=== PATIENT | male | born 1990 | race Caucasian/White ===

== ENCOUNTER 2016-12-31 14:50 | Emergency (ER) | payer MEDICARE, MEDICAID ==
[~2016-12-31 14:50] MED LIST: Sodium Chloride 0.9% 1,000 ML BAG ONE
[2016-12-31] MEDS ORDERED: Acetaminophen 500 MG TAB ONE (15:15)
[2016-12-31] MEDS ORDERED: Ibuprofen 600 MG TAB ONE (15:15)
[2016-12-31] MEDS ORDERED: Dexamethasone 10 MG/ML VIAL ONE (15:40)
[2016-12-31] MEDS ORDERED: Azithromycin 500 MG VIAL ONE (15:40)
[2016-12-31] MEDS ORDERED: Ondansetron HCl/PF 4 MG/2 ML Vial ONE (16:27)
--- NOTE | 2016-12-31 18:51 | ERRECORD ---
[facility] EMERGENCY RECORD HPI SORE THROAT (18:42 BPIC) CHIEF COMPLAINT: Patient presents for evaluation of sore throat. HISTORIAN: History provided by patient. LOCATION: No localizing symptoms. QUALITY: Pain is sharp in nature. SEVERITY: Maximum severity of symptoms moderate, Currently symptoms are moderate. TIME COURSE: Gradual onset of symptoms, Symptoms are worsening. ASSOCIATED WITH: Associated with fever, No associated drooling, No associated dysphagia, No associated headache, No associated inability to take oral fluids. EXACERBATED BY: Patient's condition exacerbated by food. RELIEVED BY: Patient's condition relieved by cold fluids. ROS (18:42 BPIC) CONSTITUTIONAL: Negative constitutional review of systems. EYES: Negative eye review of systems. ENT: see hpi. CARDIOVASCULAR: Negative cardiovascular review of systems. RESPIRATORY: Negative respiratory review of systems. GI: Negative gastrointestinal review of systems. MUSCULOSKELETAL: Negative musculoskeletal review of systems. SKIN: Negative skin review of systems. PSYCHIATRIC: Negative psychiatric review of systems. NOTES: All other ROS is negative except as listed in HPI. PAST MEDICAL HISTORY MEDICAL HISTORY: Flu vaccine not up to date, Pneumococcal vaccine not up to date, No past medical history, Flu vaccine not up to date, Tetanus immunization up to date, Flu vaccine up to date, Tetanus not up to date, Pneumococcal vaccine not up to date. VERIFIED 12/31/16. (15:10 EROG) MALE SURGICAL HISTORY: Surgical history of splenectomy. VERIFIED 09-12-16. VERIFIED 12/31/16. (15:10 EROG) PSYCHIATRIC HISTORY: Psychiatric history includes, anxiety, depression, schizophrenia, ADHD, Psychiatric history includes previous inpatient psychiatric admissions, Date of last admission: 2007, Psychiatric history includes history of suicide attempts, by OVERDOSE, Date of attempt: 5 YRS AGO (PT WAS 17 YRS OLD). VERIFIED 12/31/16. (15:10 EROG) SOCIAL HISTORY: Patient drinks socially, every week, Patient is a former drug user, abused marijuana, Patient currently uses tobacco, smokes cigarettes, daily, Patient has smoked for 10 years, Patient smokes 1/2 packs per day, Patient currently uses tobacco, smokes cigarettes, daily, Patient has smoked for 10 years, Patient smokes 1 pack per day, Patient currently uses tobacco, Patient smokes cigarettes, Patient drinks socially. Patient drinks socially, Patient currently uses tobacco, Patient smokes cigarettes, daily, Patient smokes 1 pack per &a-1R&a+25V*p+0X*[id number]*c202B*c15G*c2P*p-0X&a-25V&a+1R Name: Issac Nix : 1990 M26 MedRec: [id number] AcctNum: [id number] Prepared: ThuDec 31, 2016 18:52 by Interface Page 1 of 3 pMD [facility] EMERGENCY RECORD day, , Patient currently uses drugs, abuses methamphetamines,.RECREATIONAL MARIJUANA,. (15:10 EROG) FAMILY HISTORY: No significant family history. (15:10 EROG) NOTES: I have reviewed and agree with the PMH/PSxH/FamHx/SocHx obtained by the nurse. (18:42 BPIC) KNOWN ALLERGIES Penicillins CURRENT MEDICATIONS (15:06 EROG) None VITAL SIGNS VITAL SIGNS: BP: 98/63, Pulse: 119, Resp: 22, Temp: 104.3 (Tympanic), Pain: 10 (Constant), O2 sat: 98 on Room Air, Time: 12/31/2016 15:03. (15:03 EROG) BP: 99/48, Pulse: 106, Resp: 22, Temp: 102.7 (Tympanic), O2 sat: 95 on Room Air, Time: 12/31/2016 17:01. (17:01 EROG) BP: 100/42, Pulse: 100, Resp: 20, Temp: 100.7 (Tympanic), Pain: 3, O2 sat: 96 on Room Air, Time: 12/31/2016 17:30. (17:30 EROG) BP: 122/61, Pulse: 101, Resp: 18, Pain: 2, O2 sat: 97 on Room Air, Time: 12/31/2016 18:00. (18:00 EROG) PHYSICAL EXAM (18:42 BPIC) CONSTITUTIONAL: Vital signs reviewed, Patient afebrile, Pulse normal, Blood pressure normal, Respiratory rate normal, Patient appears non toxic, Patient appears pain free, Patient alert and oriented to person, place and time. HEAD: Head exam included findings of head atraumatic, normocephalic. EYES: Eye exam included findings of eyelids normal to inspection, Pupils equally round and reactive to light, Extraocular muscles intact. ENT: Pharynx exam normal, Uvula exam normal, Tonsils, enlarged bilaterally, with exudates bilaterally. NECK: Neck exam included findings of normal range of motion, Trachea midline. RESPIRATORY CHEST: Respiratory exam included findings of no respiratory distress, Breath sounds clear. CARDIOVASCULAR: Cardiovascular exam included findings of heart rate regular rate and rhythm, Heart sounds normal. NEURO: Neuro exam findings include patient oriented to person, place and time, Speech normal. PSYCHIATRIC: Psychiatric exam included findings of patient oriented to person place and time, Normal affect. MEDICATION ADMINISTRATION SUMMARY Drug Name: Zofran intravenous, Dose Ordered: 8 mg, Route: IV Push, &a-1R&a+25V*p+0X*[id number]*c202B*c15G*c2P*p-0X&a-25V&a+1R Name: Issac Nix : 1990 M26 MedRec: [id number] AcctNum: [id number] Prepared: ThuDec 31, 2016 18:52 by Interface Page 2 of 3 pMD [facility] EMERGENCY RECORD Status: Given, Time: 16:30 12/31/2016, Drug Name: *sodium chloride 0.9 % intravenous, Dose Ordered: 1 L, Route: IV Fluid Infusion, Status: Given, Time: 16:15 12/31/2016, Drug Name: azithromycin intravenous, Dose Ordered: 500 mg, Route: IV Piggy Back, Status: Given, Time: 16:10 12/31/2016, Drug Name: Decadron injection, Dose Ordered: 10 mg, Route: IV Push, Status: Given, Time: 16:09 12/31/2016, Drug Name: *ibuprofen, Dose Ordered: 600 mg, Route: Oral, Status: Given, Time: 15:18 12/31/2016, Drug Name: *acetaminophen oral, Dose Ordered: 1000 mg, Route: Oral, Status: Given, Time: 15:18 12/31/2016, *Additional information available in notes, Detailed record available in Medication Service section. DOCTOR NOTES (18:42 BPIC) NOTES: Patient with sorethroat and fever by history. Non-toxic appearing. DDX considered includes sagar-tonsillar abscess, retro-pharyngeal abscess, dental infection, ebony's, strep throat, mono, thyroiditis. Exam is re-assuring. Will d/c to outpatient follow up with symptomatic treatment. TEXT: pt was tachycardic and febrile, after ivf and iv abx, along with antipyretics, pt felt much better. PROBLEM LIST No recorded problems DIAGNOSIS (16:33 BPIC) FINAL: PRIMARY: Strep pharyngitis. PRESCRIPTION (16:34 BPIC) azithromycin oral: TABLET : 250 mg : ORAL : Quantity: 250 Unit: mg Route: ORAL Schedule: once a day Dispense: 6 May substitute. Refills: No Refills . NOTES: 500 mg on day 1 then 250 mg on days 2-5 No Refills. DISPOSITION PATIENT: Disposition Type: Discharge, Disposition: *Discharge Home, Condition: Good. (16:33 BPIC) Patient left the department. (18:33 EROG) [place]: BPIC=MD Chandu, Eric EROG=TARA Thornton, Evert &a-1R&a+25V*p+0X*[id number]*c202B*c15G*c2P*p-0X&a-25V&a+1R Name: Issac Nix : 1990 M26 MedRec: [id number] AcctNum: [id number] Prepared: ThuDec 31, 2016 18:52 by Interface Page 3 of 3 pMD MTDD
--- NOTE | 2016-12-31 18:55 | PICIS ---
[facility] EMERGENCY RECORD TRIAGE (ThuDec 31, 2016 15:05 EROG) TRIAGE NOTES: FEVER, CONGESTION, BODY ACHES FOR 1 WEEK. (ThuDec 31, 2016 15:05 EROG) PATIENT: NAME: Issac Nix, AGE: 26, GENDER: male, : Thu1990, TIME OF GREET: ThuDec 31, 2016 14:51, PREFERRED LANGUAGE: Swazi, ETHNICITY: Not or , FALL RISK: NO, ECODE BILLING MAP: [facility], SSN: [id number], Zip Code: [address], KG WEIGHT: 61.23 (est.), HEIGHT/LENGTH: 170.18cm, BMI: 21.14, PHONE: , , , PERSON ID: [id number], PCP: NONE. (ThuDec 31, 2016 15:05 EROG) COMPLAINT: HIGH FEVER. (ThuDec 31, 2016 15:05 EROG) ADMISSION: URGENCY: 3 Urgent, ADMISSION SOURCE: Home, TRANSPORT: CAR, BED: TRIAGE. (ThuDec 31, 2016 15:05 EROG) ASSESSMENT: Assessment: FEVER, CONGESTION, GENERALIZED BODY ACHES, Symptoms began 1 week ago. (15:10 EROG) PAIN: Patient complains of pain described as, unbearable, on a scale 0-10 patient rates pain as 10, Pain is constant, No aggravating factors, No relieving factors. (15:10 EROG) IMMUNIZATIONS: Flu vaccine not up to date, Pneumococcal vaccine not up to date. (15:10 EROG) SIRS SCORING: Heart Rate 110-139 (2), Temp range 102.1-105.6 (3), respiratory rate 12-24 (0), Mental Status altered: no (0), Total SIRS Score 5, Yes, Infection or Suspected Infection. (15:10 EROG) PROVIDERS: TRIAGE NURSE: Evert Thornton RN. (ThuDec 31, 2016 15:05 EROG) VITAL SIGNS: BP 98/63, Pulse 119, Resp 22, Temp 104.3, (Tympanic), Pain 10, (Constant), O2 Sat 98, on Room Air, Time 12/31/2016 15:03. (15:03 EROG) PREVIOUS VISIT ALLERGIES: Penicillins. (ThuDec 31, 2016 15:05 EROG) Penicillins. (15:10 EROG) KNOWN ALLERGIES Penicillins CURRENT MEDICATIONS (15:06 EROG) None VITAL SIGNS VITAL SIGNS: BP: 98/63, Pulse: 119, Resp: 22, Temp: 104.3 (Tympanic), Pain: 10 (Constant), O2 sat: 98 on Room Air, Time: 12/31/2016 15:03. (15:03 EROG) BP: 99/48, Pulse: 106, Resp: 22, Temp: 102.7 (Tympanic), O2 sat: 95 on Room Air, Time: 12/31/2016 17:01. (17:01 EROG) BP: 100/42, Pulse: 100, Resp: 20, Temp: 100.7 (Tympanic), Pain: 3, O2 sat: 96 on Room Air, Time: 12/31/2016 17:30. (17:30 EROG) BP: 122/61, Pulse: 101, Resp: 18, Pain: 2, O2 sat: 97 on Room Air, Time: &a-1R&a+25V*p+0X*h3585B*c202B*c15G*c2P*p-0X&a-25V&a+1R Name: Issac Nix : 1990 M26 MedRec: [id number] AcctNum: [id number] Prepared: ThuDec 31, 2016 18:58 by Interface Page 1 of 9 pMD [facility] EMERGENCY RECORD 12/31/2016 18:00. (18:00 EROG) NURSING ASSESSMENT: ENT (15:19 EROG) CONSTITUTIONAL: Patient arrives ambulatory, Gait steady, History obtained from patient, Patient appears, generally ill, Patient cooperative, Patient alert, Oriented to person, place and time, Skin warm, Skin dry, Skin normal in color, Mucous membranes pink, Mucous membranes, dry, Patient, with poor personal hygiene, cLOTHES DIRTY, Patient complains of FEVER, CONGESTION, GENERALIZED BODY ACHES. PAIN: to the throat, DESCRIBES - BODY BEING SHOCKED BY ELECTRICITY, Pain exacerbated by, speaking, swallowing. ENT: Ear assessment findings include ear normal to inspection, Nasal assessment findings include nose normal to inspection, Sinuses normal, Nasal mucosa normal, Congestion, bilaterally, Mouth and throat assessment findings include mouth inspection normal, Uvula normal, Tonsils, swollen +1 on the left, normal on the right, without exudates, Mucous membranes pink, and, dry, Unable to swallow, complains of difficulty swallowing, PAINFUL, Speech normal, Associated with fever, Maximum temperature (degree F) 104.2, tympanically, Associated with headache, FRONTAL. RESPIRATORY/CHEST: Breath sounds clear, Respiratory assessment findings include respiratory effort easy, Respirations regular, Conversing normally, Neck and chest exam findings include trachea midline, Chest expansion equal, Chest movement symmetrical, Associated with cough, non-productive, Associated with fever, tympanic. NOTES: Notes: C/O GENERALIZED BODY PAIN, GREATEST IN HIS BACK. NURSING PROCEDURE: DISCHARGE NOTE (18:20 EROG) DISCHARGE: Patient discharged to home, ambulating without assistance, friend driving, accompanied by friend, Summary of Care printed/ provided, Patient requested and was provided an electronic copy of Discharge Instructions, Transition record given to patient, Discharge instructions given to patient, Simple or moderate discharge teaching performed, Prescriptions given and instructions on side effects given, Name of prescription(s) given: azithromycin, Medication reconciliation form given, Above person(s) verbalized understanding of discharge instructions and follow-up care. BELONGINGS: Belongings remain with patient, Valuables remain with patient. NURSING PROCEDURE: IV PATIENT IDENITIFIER: Patient actively involved in identification process, Patient's identity verified by patient stating name, &a-1R&a+25V*p+0X*d2982X*c202B*c15G*c2P*p-0X&a-25V&a+1R Name: Issac Nix : 1990 M26 MedRec: [id number] AcctNum: [id number] Prepared: ThuDec 31, 2016 18:58 by Interface Page 2 of 9 pMD [facility] EMERGENCY RECORD Patient's identity verified by patient stating date, Patient's identity verified by hospital ID bracelet. (16:03 EROG) IV SITE 1: IV therapy indicated for hydration, IV therapy indicated for medication administration, IV established, to the right antecubital, using an 18 gauge catheter, in one attempt, IV site prepped with CHLOROPREP, Saline lock established. (16:03 EROG) FOLLOW-UP SITE 1: After procedure, sterile transparent dressing applied. (16:03 EROG) After procedure, sterile transparent dressing applied, IV discontinued, due to patient being discharged, catheter intact. (18:20 EROG) NURSING PROCEDURE: NURSE NOTES NURSES NOTES: Notes: patient was complaining of nausea. Dr. Schofield notified. Medicated with Zofran as ordered. (16:30 EROG) Notes: patient states that nausea has decreased, and he is feeling a little better. Temp down to 102.7 tympanic. IV infusing well with no problems at site. (16:54 EROG) MEDICATION ADMINISTRATION SUMMARY Drug Name: Zofran intravenous, Dose Ordered: 8 mg, Route: IV Push, Status: Given, Time: 16:30 12/31/2016, Drug Name: *sodium chloride 0.9 % intravenous, Dose Ordered: 1 L, Route: IV Fluid Infusion, Status: Given, Time: 16:15 12/31/2016, Drug Name: azithromycin intravenous, Dose Ordered: 500 mg, Route: IV Piggy Back, Status: Given, Time: 16:10 12/31/2016, Drug Name: Decadron injection, Dose Ordered: 10 mg, Route: IV Push, Status: Given, Time: 16:09 12/31/2016, Drug Name: *ibuprofen, Dose Ordered: 600 mg, Route: Oral, Status: Given, Time: 15:18 12/31/2016, Drug Name: *acetaminophen oral, Dose Ordered: 1000 mg, Route: Oral, Status: Given, Time: 15:18 12/31/2016, *Additional information available in notes, Detailed record available in Medication Service section. MEDICATION SERVICE acetaminophen oral: Order: acetaminophen oral (acetaminophen) - Dose: 1000 mg : Oral Schedule: Now Notes: Read back and verified, Verbal Order Ordered by: Eric Schofield MD Entered by: Evert Thornton RN ThuDec 31, 2016 15:14 , Acknowledged by: Evert Thornton RN ThuDec 31, 2016 15:14 Documented as given by: Evert Thornton RN ThuDec 31, 2016 15:18 Patient, Medication, Dose, Route and Time verified prior to administration. Amount given: 1000MG, Site: Medication administered P.O., Correct patient, time, route, dose and medication confirmed prior to administration, Patient advised of actions and side-effects prior to administration, Allergies confirmed and medications reviewed prior to &a-1R&a+25V*p+0X*v5613X*c202B*c15G*c2P*p-0X&a-25V&a+1R Name: Issac Nix : 1990 M26 MedRec: [id number] AcctNum: [id number] Prepared: ThuDec 31, 2016 18:58 by Interface Page 3 of 9 pMD [facility] EMERGENCY RECORD administration, Patient tolerated procedure with difficulty, Patient in position of comfort, Cart in lowest position, Family at bedside, Call light in reach. : Follow Up : Response assessment performed, No signs or symptoms of allergic reaction noted, Decreased temperature, down to 102.7 Tympanic. (17:11 EROG) azithromycin intravenous: Order: azithromycin intravenous (azithromycin) - Dose: 500 mg : IV Piggy Back Ordered by: Eric Schofield MD Entered by: Eric Schofield MD ThuDec 31, 2016 15:36 , Acknowledged by: Evert Thornton RN ThuDec 31, 2016 15:37 Documented as given by: Evert Thornton RN ThuDec 31, 2016 16:10 Patient, Medication, Dose, Route and Time verified prior to administration. Amount given: 500 mg, IV SITE #1 IVPB or drip, initial infusion, IVPB mixed in: 250ml, Fluid: 0.9NS, via primary tubing, at 250 ml/hr, Awake and alert- acceptable, Catheter placement confirmed via flush prior to administration, IV site without signs or symptoms of infiltration during medication administration, No swelling during administration, No drainage during administration, IV flushed after administration, Correct patient, time, route, dose and medication confirmed prior to administration, Patient advised of actions and side-effects prior to administration, Allergies confirmed and medications reviewed prior to administration, Patient in position of comfort, Cart in lowest position, Family at bedside, Call light in reach. : Follow Up : _IV SITE #1:_, Medication infusion discontinued, on ThuDec 31, 2016 17:10, Total infusion time IV site 1 1 hour, 5 minutes, ., Total amount infused: 250 ml. (17:12 EROG) Decadron injection: Order: Decadron injection (dexamethasone sod phosphate) - Dose: 10 mg : IV Push Ordered by: Eric Schofield MD Entered by: Eric Schofield MD ThuDec 31, 2016 15:36 , Acknowledged by: Evert Thornton RN ThuDec 31, 2016 15:37 Documented as given by: Evert Thornton RN ThuDec 31, 2016 16:09 Patient, Medication, Dose, Route and Time verified prior to administration. Amount given: 10mg, IV SITE #1 IVP, initial medication, Slowly, Awake and alert- acceptable, Catheter placement confirmed via flush prior to administration, IV site without signs or symptoms of infiltration during medication administration, No swelling during administration, No drainage during administration, IV flushed after administration, Correct patient, time, route, dose and medication confirmed prior to administration, Patient advised of actions and side-effects prior to administration, Allergies confirmed and medications reviewed prior to administration, Patient in position of comfort, Cart in lowest position, Family at bedside, Call light in reach. : Follow Up : No signs or symptoms of allergic reaction noted, _IV SITE #1:_. (17:14 EROG) &a-1R&a+25V*p+0X*h4723E*c202B*c15G*c2P*p-0X&a-25V&a+1R Name: Issac Nix : 1990 M26 MedRec: [id number] AcctNum: [id number] Prepared: ThuDec 31, 2016 18:58 by Interface Page 4 of 9 pMD [facility] EMERGENCY RECORD ibuprofen: Order: ibuprofen - Dose: 600 mg : Oral Schedule: Now Notes: Read back and verified, Verbal Order Ordered by: Eric Schofield MD Entered by: Evert Thornton RN ThuDec 31, 2016 15:13 , Acknowledged by: Evert Thornton RN ThuDec 31, 2016 15:14 Documented as given by: Evert Thornton RN ThuDec 31, 2016 15:18 Patient, Medication, Dose, Route and Time verified prior to administration. Amount given: 600MG, Site: Medication administered P.O., Correct patient, time, route, dose and medication confirmed prior to administration, Patient advised of actions and side-effects prior to administration, Allergies confirmed and medications reviewed prior to administration, Patient tolerated procedure with difficulty, Patient in position of comfort, Cart in lowest position, Family at bedside, Call light in reach. : Follow Up : Response assessment performed, No signs or symptoms of allergic reaction noted, Decreased temperature. (17:12 EROG) sodium chloride 0.9 % intravenous: Order: sodium chloride 0.9 % intravenous (0.9 % sodium chloride) - Dose: 1 L : IV Fluid Infusion Notes: (Bolus) Ordered by: Eric Schofield MD Entered by: Eric Schofield MD ThuDec 31, 2016 15:37 , Acknowledged by: Evert Thornton RN ThuDec 31, 2016 15:37 Documented as given by: Evert Thornton RN ThuDec 31, 2016 16:15 Patient, Medication, Dose, Route and Time verified prior to administration. Amount given: 1000ml, IV SITE #1 IV fluids established for hydration, IV SITE #1 into right antecubital, IV SITE #1 1st bag hung, amount 1 Liter hung, IV SITE #1 bolus of 1000 ml established, via primary tubing, via pump tubing, IV SITE #1 on IV pump, Awake and alert- acceptable, Catheter placement confirmed via flush prior to administration, IV site without signs or symptoms of infiltration during medication administration, No swelling during administration, No drainage during administration, IV flushed after administration, Correct patient, time, route, dose and medication confirmed prior to administration, Patient advised of actions and side-effects prior to administration, Allergies confirmed and medications reviewed prior to administration, Patient in position of comfort, Cart in lowest position, Family at bedside, Call light in reach. : Follow Up : Response assessment performed, Decreased pain, Decreased symptoms, Decreased temperature, Decreased nausea, _IV SITE #1:_, IV fluid infusion discontinued, on ThuDec 31, 2016 18:09, Total fluid hydration time IV site 1 1 hour, 55 minutes, ., Total amount infused: 1000 ml, IV Discontinued with catheter intact. (18:09 EROG) Zofran intravenous: Order: Zofran intravenous (ondansetron HCl) - Dose: 8 mg : IV Push &a-1R&a+25V*p+0X*e3223Y*c202B*c15G*c2P*p-0X&a-25V&a+1R Name: Issac Nix : 1990 M26 MedRec: [id number] AcctNum: [id number] Prepared: ThuDec 31, 2016 18:58 by Interface Page 5 of 9 pMD [facility] EMERGENCY RECORD Schedule: Now Ordered by: Eric Schofield MD Entered by: Eric Schofield MD ThuDec 31, 2016 16:26 , Acknowledged by: Evert Thornton RN ThuDec 31, 2016 16:29 Documented as given by: Evert Thornton RN ThuDec 31, 2016 16:30 Patient, Medication, Dose, Route and Time verified prior to administration. Amount given: 8 mg, IV SITE #1 IVP, initial medication, Slowly, Awake and alert- acceptable, Catheter placement confirmed via flush prior to administration, IV site without signs or symptoms of infiltration during medication administration, No swelling during administration, No drainage during administration, IV flushed after administration, Correct patient, time, route, dose and medication confirmed prior to administration, Patient advised of actions and side-effects prior to administration, Allergies confirmed and medications reviewed prior to administration, Patient in position of comfort, Cart in lowest position, Family at bedside, Call light in reach. : Follow Up : No signs or symptoms of allergic reaction noted, Decreased nausea, _IV SITE #1:_. (17:15 EROG) HPI SORE THROAT (18:42 BPIC) CHIEF COMPLAINT: Patient presents for evaluation of sore throat. HISTORIAN: History provided by patient. LOCATION: No localizing symptoms. QUALITY: Pain is sharp in nature. SEVERITY: Maximum severity of symptoms moderate, Currently symptoms are moderate. TIME COURSE: Gradual onset of symptoms, Symptoms are worsening. ASSOCIATED WITH: Associated with fever, No associated drooling, No associated dysphagia, No associated headache, No associated inability to take oral fluids. EXACERBATED BY: Patient's condition exacerbated by food. RELIEVED BY: Patient's condition relieved by cold fluids. ROS (18:42 BPIC) CONSTITUTIONAL: Negative constitutional review of systems. EYES: Negative eye review of systems. ENT: see hpi. CARDIOVASCULAR: Negative cardiovascular review of systems. RESPIRATORY: Negative respiratory review of systems. GI: Negative gastrointestinal review of systems. MUSCULOSKELETAL: Negative musculoskeletal review of systems. SKIN: Negative skin review of systems. PSYCHIATRIC: Negative psychiatric review of systems. NOTES: All other ROS is negative except as listed in HPI. PAST MEDICAL HISTORY MEDICAL HISTORY: Flu vaccine not up to date, &a-1R&a+25V*p+0X*a3735F*c202B*c15G*c2P*p-0X&a-25V&a+1R Name: Issac Nix : 1990 M26 MedRec: [id number] AcctNum: [id number] Prepared: ThuDec 31, 2016 18:58 by Interface Page 6 of 9 pMD [facility] EMERGENCY RECORD Pneumococcal vaccine not up to date, No past medical history, Flu vaccine not up to date, Tetanus immunization up to date, Flu vaccine up to date, Tetanus not up to date, Pneumococcal vaccine not up to date. VERIFIED 12/31/16. (15:10 EROG) MALE SURGICAL HISTORY: Surgical history of splenectomy. VERIFIED 09-12-16. VERIFIED 12/31/16. (15:10 EROG) PSYCHIATRIC HISTORY: Psychiatric history includes, anxiety, depression, schizophrenia, ADHD, Psychiatric history includes previous inpatient psychiatric admissions, Date of last admission: 2007, Psychiatric history includes history of suicide attempts, by OVERDOSE, Date of attempt: 5 YRS AGO (PT WAS 17 YRS OLD). VERIFIED 12/31/16. (15:10 EROG) SOCIAL HISTORY: Patient drinks socially, every week, Patient is a former drug user, abused marijuana, Patient currently uses tobacco, smokes cigarettes, daily, Patient has smoked for 10 years, Patient smokes 1/2 packs per day, Patient currently uses tobacco, smokes cigarettes, daily, Patient has smoked for 10 years, Patient smokes 1 pack per day, Patient currently uses tobacco, Patient smokes cigarettes, Patient drinks socially. Patient drinks socially, Patient currently uses tobacco, Patient smokes cigarettes, daily, Patient smokes 1 pack per day, , Patient currently uses drugs, abuses methamphetamines,.RECREATIONAL MARIJUANA,. (15:10 EROG) FAMILY HISTORY: No significant family history. (15:10 EROG) NOTES: I have reviewed and agree with the PMH/PSxH/FamHx/SocHx obtained by the nurse. (18:42 BPIC) PHYSICAL EXAM (18:42 BPIC) CONSTITUTIONAL: Vital signs reviewed, Patient afebrile, Pulse normal, Blood pressure normal, Respiratory rate normal, Patient appears non toxic, Patient appears pain free, Patient alert and oriented to person, place and time. HEAD: Head exam included findings of head atraumatic, normocephalic. EYES: Eye exam included findings of eyelids normal to inspection, Pupils equally round and reactive to light, Extraocular muscles intact. ENT: Pharynx exam normal, Uvula exam normal, Tonsils, enlarged bilaterally, with exudates bilaterally. NECK: Neck exam included findings of normal range of motion, Trachea midline. RESPIRATORY CHEST: Respiratory exam included findings of no respiratory distress, Breath sounds clear. CARDIOVASCULAR: Cardiovascular exam included findings of heart rate regular rate and rhythm, Heart sounds normal. NEURO: Neuro exam findings include patient oriented to person, place and time, Speech normal. PSYCHIATRIC: Psychiatric exam included findings of patient oriented to person place and time, Normal affect. &a-1R&a+25V*p+0X*l7127U*c202B*c15G*c2P*p-0X&a-25V&a+1R Name: Issac Nix : 1990 M26 MedRec: [id number] AcctNum: [id number] Prepared: ThuDec 31, 2016 18:58 by Interface Page 7 of 9 pMD [facility] EMERGENCY RECORD EVENTS TRANSFER: Triage to Emergency Triage. (ThuDec 31, 2016 15:05 EROG) Emergency Triage to Main ED -03. (15:17 JPAR) Removed from Emergency Main ED -03. (18:33 EROG) DOCTOR NOTES (18:42 BPIC) NOTES: Patient with sorethroat and fever by history. Non-toxic appearing. DDX considered includes sagar-tonsillar abscess, retro-pharyngeal abscess, dental infection, ebony's, strep throat, mono, thyroiditis. Exam is re-assuring. Will d/c to outpatient follow up with symptomatic treatment. TEXT: pt was tachycardic and febrile, after ivf and iv abx, along with antipyretics, pt felt much better. PROBLEM LIST No recorded problems DIAGNOSIS (16:33 BPIC) FINAL: PRIMARY: Strep pharyngitis. DISPOSITION PATIENT: Disposition Type: Discharge, Disposition: *Discharge Home, Condition: Good. (16:33 BPIC) Patient left the department. (18:33 EROG) INSTRUCTION (16:34 BPIC) DISCHARGE: PHARYNGITIS, STREP (PRESUMED). FOLLOWUP: [facility], -, Primary Care Referral Line, . SPECIAL: Thank you for choosing [facility] for your care today! Please follow up with your doctor in the next 2-3 days. Return to the emergency department with any emergent or worsening concerns. God Bless you!. PRESCRIPTION (16:34 BPIC) azithromycin oral: TABLET : 250 mg : ORAL : Quantity: 250 Unit: mg Route: ORAL Schedule: once a day Dispense: 6 May substitute. Refills: No Refills . NOTES: 500 mg on day 1 then 250 mg on days 2-5 No Refills. IMAGING (18:31 EROG) *DISCHARGE INSTRUCTIONS RECEIPT: Image captured from scanner. *SUPPLY CHARGE SHEET: Image captured from scanner. ADMIN DIGITAL SIGNATURE: TARA Thornton, Evert. (18:33 EROG) MD Schofield Bryan. (18:43 BPIC) [place]: &a-1R&a+25V*p+0X*w3426W*c202B*c15G*c2P*p-0X&a-25V&a+1R Name: Issac Nix : 1990 M26 MedRec: [id number] AcctNum: [id number] Prepared: ThuDec 31, 2016 18:58 by Interface Page 8 of 9 pMD [facility] EMERGENCY RECORD BPIC=MD Schofield Bryan EROG=TARA Thornton Eugene JPAR=TAMIA Deluna Julia &a-1R&a+25V*p+0X*i2203C*c202B*c15G*c2P*p-0X&a-25V&a+1R Name: Issac Nix : 1990 M26 MedRec: [id number] AcctNum: [id number] Prepared: ThuDec 31, 2016 18:58 by Interface Page 9 of 9 pMD [facility]
== END 2016-12-31 18:20 | disposition home or self-care (01) ==
LOC: MADERS 14:50
DX: J02.0 Streptococcal pharyngitis (principal); F32.9 Major depressive disorder, single episode, unspecified; F41.9 Anxiety disorder, unspecified; F20.9 Schizophrenia, unspecified; F90.9 Attention-deficit hyperactivity disorder, unspecified type; F17.210 Nicotine dependence, cigarettes, uncomplicated
CPT/HCPCS: 96361; 96365; 96375; J0456; J1100; J2405; J7050